=== PATIENT | male | born 1950 | race Caucasian/White ===

== ENCOUNTER 2016-07-26 18:05 | Inpatient (IN) | payer OTHER, BC ==
[~2016-07-26] VITALS: Ht 177.8 cm; Wt 85.3 kg
--- NOTE | ~2016-07-26 | O ---
[facility] [place] [address] OPERATIVE REPORT Name: HANK GUAN Room #: 404-P ADM IN M.R.#: [id number] Admission: 07/26/16 Attend Phys: Jayro Sharp MD Discharge: Date of : 52 Report #: [id number] THIS REPORT FOR: //name// CC: Dr. Vibha Schwab MD DATE OF SERVICE: 07/27/2016 PREOPERATIVE DIAGNOSIS: Osteomyelitis, left fifth metatarsal with septic joint, left foot. POSTOPERATIVE DIAGNOSIS: Osteomyelitis, left fifth metatarsal with septic joint, left foot. SURGEON: Dewayne Warren DPM. PLATER PRODUCTION: None. ANESTHESIA: LMA and general PROCEDURE IN DETAIL: Under mild sedation, the patient was brought into the operating room, placed on the operating table and placed in supine position. Following sedation, the foot was scrubbed, prepped and draped in the usual sterile manner with a chronic wound on the lateral aspect of the left foot, which was confirmed to be osteomyelitis on a CT scan. Also, has elevated sed rate and a white blood cell count is mildly elevated. I made a fishmouth shaped incision at the base of the fifth toe extending to the lateral aspect of the toe where the wound was present encompassing the wound and the incision was deepened through the subcutaneous tissue utilizing sharp and blunt dissection technique. Bleeders were ligated and cauterized as necessary. I did notice a fair to good amount of bleeding noted, which I was pleased with upon the incision. The incision was deepened to the subcutaneous tissue utilizing sharp and blunt dissection techniques. Care was taken to identify neural and vascular structures. I then disarticulated the fifth toe at the level of the fifth metatarsophalangeal joint. Purulence was obvious in the joint and the fifth toe base was certainly involved along with the fifth metatarsal head, which was soft laterally and friable. I used a sagittal saw to resect the fifth metatarsal head and neck and shaft both laterally and plantarly to avoid any sharp prominences. The bones were removed and passed the operative field and will be sent to pathology for gross micro evaluation. Wound cultures were taken from inside the joint where the purulence was obvious. I irrigated with copious amounts of normal sterile saline mixed bacitracin and looked for any necrotic [address] [address] OPERATIVE REPORT Name: HANK GUAN Room #: 404-P ADM IN M.R.#: [id number] Admission: 07/26/16 Attend Phys: Jayro Sharp MD Discharge: Date of : 52 Report #: [id number] tissue and it should be noted that none was found. I irrigated again with normal sterile saline. I reapproximated the wound margins utilizing 2-0 Prolene to facilitate healing. I did feel like I resected back to healthy bleeding bone with left remaining appeared healthy and viable without evidence of osteomyelitis. I then washed the distal portion of the wound open and packed this lightly with NuGauze, light sterile dressings were applied. No tourniquet was used as the patient has had a bypass on the legs. He has been given Zosyn and vancomycin. He tolerated the procedure and anesthesia well without complications. He was transferred to recovery with vital signs stable and vascular status intact to the left side. Following a period of postoperative monitoring, the patient will be transferred back to the fourth floor under the care of Dr. Harrison and consultants. By: [id number] Dewayne Warren DPM /carina
--- NOTE | ~2016-07-26 | EKG ---
[address] [place] [address] ELECTROCARDIOGRAM REPORT Name: FREIDAHANK Room #: 404-P ADM IN M.R.#: [id number] Admission: 07/26/16 Attend Phys: Lore Rubin Discharge: Date of : 52 Report #: [id number] THIS REPORT FOR: //name// [facility] Test Date: 2016-07-27 Test Time: 15:42:45 Pat Name: HANK GUAN Department: Room: 404 P Gender: M Video Editor: LARA : 1950 Requested By: Sampson Warren Order Number: [id number] MD: Measurements Intervals [place] Rate: 71 P: 43 OR: 161 QRS: 5 QRSD: 99 T: 150 QT: 378 QTc: 411 Interpretive Statements Sinus rhythm Abnormal R-wave progression, early transition LVH with secondary repolarization abnormality Inferior infarct, old Baseline wander in lead(s) V2,V3 Compared to ECG 03/15/2006 07:31:38 Left ventricular hypertrophy now present Early repolarization now present Myocardial infarct finding still present [email or web address] By: 1542 1542 Epiphany Epiphany, /EPI
--- NOTE | ~2016-07-26 | HC ---
[facility] [place] [address] CONSULTATION Name: HANK GUAN Room #: 404-P [place] IN M.R.#: [id number] Admission: 07/26/16 Attend Phys: Jayro Sharp MD Discharge: Date of : 52 Report #: [id number] THIS REPORT FOR: //name// CC: ANISHA Sharp DATE OF SERVICE: 07/27/2016 HISTORY OF PRESENT ILLNESS: A 66-year-old man admitted with left diabetic foot infection and started on vancomycin and Zosyn. In view of renal dysfunction, vancomycin and decrease dose of Zosyn. The patient now on linezolid and Zosyn. Cultures are still pending. Apparently, the patient had foot infection for several weeks to month and a CT scan and x-rays reveal chronic osteomyelitis, left fifth toe, possibly left fourth metatarsal. PAST MEDICAL HISTORY: Diabetes mellitus. Peripheral vascular disease. Status post revascularization of lower extremity. History of stent infection requiring removal. The patient had been on treatment at home with a combination of oral antibiotics. The patient has a history of neuropathy. Previous episode of Guillain-Marion. Coronary artery bypass grafting x 6. DRUG ALLERGIES: INFLUENZA VACCINE. MEDICATIONS: The patient is on treatment with aspirin, metoprolol, sertraline, clopidogrel bisulfate, atorvastatin, lisinopril, glimepiride, Zosyn 3.375 grams IV every 8 hours, linezolid 600 mg IV twice daily, subcutaneous heparin, lactobacillus acidophilus, insulin Lispro per sliding scale, p.r.n. glucose, glucagon. SOCIAL HISTORY: See H and P. FAMILY HISTORY: See H and P. REVIEW OF SYSTEMS: As above and see H and P. PHYSICAL EXAMINATION: GENERAL: Well-developed, chronically ill-appearing man, afebrile. VITAL SIGNS: Temperature 98.5, pulse 77, respirations 18, BP 134/55. HEENMT: Within range, NECK: Supple. No thyromegaly. LUNGS: Clear. HEART: S1, S2. No gallop or murmur. ABDOMEN: Benign. EXTREMITIES: Atrophy, interosseous muscles, hands and lesions of onychomycosis in fingernails on treatment with Lamisil per Dr. Wilkins. The patient has an ulceration and pus draining. Ulceration around the left fifth [facility] [place] [place] [address] [place] [address] CONSULTATION Name: HANK GUAN Room #: 404-P [place] IN M.R.#: [id number] Admission: 07/26/16 Attend Phys: Jayro Sharp MD Discharge: Date of : 52 Report #: [id number] metatarsophalangeal joint area. I detect no peripheral pulses by palpation. NEUROLOGIC: Grossly within normal limits. LABORATORY DATA: Sodium 138, potassium 4, BUN 33, creatinine 1.7, glucose 120. WBC 11.5, hemoglobin 12.2, platelets 191,000. Sed rate 83. CRP 126.6. C. difficile toxin assay negative. RADIOLOGY EVALUATION: CT scan of the foot revealed findings compatible with osteomyelitis, septic arthritis left fifth metatarsophalangeal joint and possible osteomyelitis, left fourth metatarsal. Discussed with Dr. Warren who by surgical servation of the metatarsal detected no evidence of osteomyelitis when she proceeded to resect fifth metatarsal and toes. MICROBIOLOGY DATA: Culture of the drainage from the foot revealed MRSA, Enterococcus species and gram-negative organism. ASSESSMENT: 1. Chronic osteomyelitis, left fifth metatarsophalangeal joint area with septic arthritis. 2. Peripheral vascular disease. 3. Chronic kidney disease secondary to diabetes. 4. Coronary artery bypass grafting. 5. Onychomycosis, fingernails. SUGGESTIONS: Recommend Zyvox 600 mg IV 2 times daily, decrease Zosyn 3.375 grams IV every 8 hours. We will try to determine antibiotics he will be needing at home once culture results available to us. I canceled the vancomycin level today since the patient no longer on vancomycin. Dr. Kimble, thank you for requesting my suggestions. <ELECTRONICALLY SIGNED> By: Epi Dunne MD 07/29/16 0845 1147 1820 Epi Dunne MD /nt
--- NOTE | ~2016-07-26 | HC ---
[facility] [place] [address] CONSULTATION Name: FREIDAHANK CHARY Room #: 404-P [facility] IN M.R.#: [id number] Admission: 07/26/16 Attend Phys: Jayro Sharp MD Discharge: 07/30/16 Date of : 52 Report #: [id number] THIS REPORT FOR: //name// CC: ANISAH DIMPLE Jayro Sharp DATE OF SERVICE: 07/30/2016 SUBJECTIVE: The patient is 2 days status post fifth ray resection, left foot. He states he is feeling better and less diarrhea. Negative for seizures. He has got a good appetite today. Overall doing well. Denies nausea, vomiting, fevers or chills. PHYSICAL EXAMINATION: VITAL SIGNS: Stable. He is currently afebrile. LOWER EXTREMITIES: Left foot, he has bleeding through the bandages. He has had these reinforced several times. Bandages were removed. Small amount of bleeding noted from the middle portion of the incision. Incision is well coapted, except for the distal portion which has some light packing. I carefully removed the packing today. No bleeding was noted from this area. Good pink perfused tissue was noted. No erythema or edema around the incision. Overall looks very good. LABORATORY DATA: Recent labs, sed rates down to the 20s from 90 yesterday. ASSESSMENT AND PLAN: Osteomyelitis and joint infection status post fifth ray resection, postoperative day #3. Healing as anticipated. Sed rate down significantly indicating resolution of the infection. Continue with daily dressing changes. Plans noted for transfer to rehab facility today, which I agree with. I will follow up with him next week on Tuesday. Appointments have already been made. Antibiotics per infectious disease. He is on linezolid and Zosyn based on cultures, which were positive for MRSA and Enterococcus. Minimal activity. The patient is to use surgical shoe at all times when ambulating. Minimal activities on the left foot. By: 1503 1527 Dewayne Warren DPM /nt
--- NOTE | ~2016-07-26 | HC ---
[facility] [place] [address] CONSULTATION Name: HANK GUAN Room #: 404-P [facility] IN M.R.#: [id number] Admission: 07/26/16 Attend Phys: Jayro Sharp MD Discharge: 07/30/16 Date of : 52 Report #: [id number] THIS REPORT FOR: //name// CC: ANISHA DIMPLE Sharp DATE OF SERVICE: 07/28/2016 HISTORY OF PRESENT ILLNESS: The patient is a 66-year-old white male with history of diabetes mellitus, peripheral neuropathy, peripheral vascular disease, admitted with worsening left lateral forefoot wounds as well as nausea and vomiting and decreased appetite. He was evaluated and has now undergone a fifth toe amputation on 07/27/2016 by podiatry. Wound culture positive for MRSA. Stool sample has been sent for C. diff. As far as his left foot wound, he was noted to have osteomyelitis and he has been continued on IV antibiotics as per Infectious Disease. As far as his nausea and vomiting, he is feeling better this afternoon per my discussion with him. PAST MEDICAL HISTORY: Includes the prior left foot wound, his history of diabetes mellitus, history of coronary artery bypass grafting with stents, acute renal insufficiency noted on chronic kidney disease. He has had prior left lower extremity stents and bypass. MEDICATIONS: Please see the full medication listing. SOCIAL HISTORY: Lives in a house with his . There are no steps. She is retired. He notes he was getting around using his knee, walker as well as his crutches and he has a 4-wheeled walker as well. The patient has been nonweightbearing while at home typically utilizing the knee walker or the crutches. REVIEW OF SYSTEMS: Did not offer any current complaints of chest pain, shortness of breath or abdominal discomfort. PHYSICAL EXAMINATION: GENERAL: The patient is a pleasant 66-year-old white male in no obvious distress. VITAL SIGNS: Last recorded temperature 97, pulse 99, respirations 18, blood pressure 139/67. NEUROLOGIC: He is alert, pleasant, oriented, appears to be a good historian. Faces are symmetric. Functional range of motion of both upper extremities without obvious focal weakness. EXTREMITIES: He does have some mild weakness of his intrinsics of both hands. Lower extremities, right lower extremity reveals functional range of motion with good strength proximal and distal. He does have some decreased sensation, large toe proprioception with his peripheral neuropathy. Left lower extremity reveals [address] [address] CONSULTATION Name: HANK GUAN Room #: 404-P [facility] IN .R.#: [id number] Admission: 07/26/16 Attend Phys: Jayro Sharp MD Discharge: 07/30/16 Date of : 52 Report #: [id number] the left fifth toe amputation which is dressed. He otherwise has good strength proximally of the left lower extremity. ASSESSMENT: A 66-year-old white male with the following problem list: 1. Left foot wounds with osteomyelitis, status post fifth toe amputation, 07/27/2016. 2. Diabetes mellitus, type 2. 3. Acute renal insufficiency, superimposed on chronic kidney disease. 4. Premorbid peripheral neuropathy with his diabetes. 5. History of coronary artery disease with coronary artery bypass grafting and stenting. PLAN: The patient premorbidly was nonweightbearing on that left lower extremity and will be continuing with that. He will be getting up with physical therapy and we will see how he does with his basic transfers and utilizing the crutches. He notes his niece's scooter is at home. Would anticipate his functional level to be fairly similar to his premorbid status and would think that he should be able to return back to the home setting with home health care. We will nevertheless continue to follow along with his therapies to see how he does. Thank you for asking us to assist in this patient's care. Sincerely, <ELECTRONICALLY SIGNED> By: Hoang Zhu MD 08/03/16 1157 1447 Hoang Zhu MD /nt
--- NOTE | ~2016-07-26 | S ---
[facility] [place] [address] SURGICAL PATH RPT PROCEDURE Name: HANK HUI Room #: 404-P ADM IN M.R.#: [id number] Admission: 07/26/16 Date of : 52 Discharge: Report #: [id number] Path Case #: [id number] PATHOLOGY REPORT COLLECTION DATE: 07/27/2016 RECEIVED DATE: 07/28/2016 SUBMITTING PHYS: Dr. Dewayne Warren OTHER PHYS: Dr. Muna Rubin SPECIMEN(S) RECEIVED: A.5th toe and metatarsal left foot * * * * * * * * * * * * FINAL DIAGNOSIS: Fifth toe and metatarsal left foot, amputation: - Marked acute inflammation involving subcutaneous tissue extending into underlying bone, consistent with the provided history of osteomyelitis. - Inked margins showing viable and unremarkable bone. PATHOLOGIST: Claudia Lopez M.D. REPORT ELECTRONICALLY SIGNED BY: Claudia Lopez M.D. DATE/TIME: 07/29/2016 15:00 * * * * * * * * * * * * GROSS PATHOLOGY: The specimen is received in formalin labeled "Hank Hui fifth toe and metatarsal left foot". Received is an amputated digit measuring 6.4 x 3.1 x 2.0 cm in greatest dimensions. The bone margin is smooth and concave in appearance, consistent with disarticulation. The bony and soft tissue margins are inked black. The nail is present displaying a light preston and thickened appearance. Along the skin margin, there is a poorly circumscribed, irregular in contour, necrotic-appearing light preston lesion measuring 2.8 x 2.7 cm. A full-length longitudinal cross section is submitted in cassettes A1 and A2, divided into proximal and distal aspects, following decalcification. Also received within the specimen container is an additional segment of bone displaying one blunt margin and one smooth margin, measuring 2.9 x 1.7 x 1.1 cm in greatest dimensions. The blunt margin is inked black. A strategic partnership representative full-length cross-sections submitted in cassette A3, following decalcification. (CAA; 07/28/2016) [facility] [place] [address] SURGICAL PATH RPT PROCEDURE Name: HANK HUI Room #: 404-P ADM IN M.R.#: [id number] Admission: 07/26/16 Date of : 52 Discharge: Report #: [id number] Path Case #: [id number] CLINICAL HISTORY: Osteomyelitis INITIAL CPT CODE(S): A; 79469, 79499 Professional services performed by [facility] at [facility] [address] [place] [address] Technical services performed by [facility] at [address] [place] [address], [facility] [address] [address]. [facility] [address] [place] [address] PHONE: [phone] DIRECTOR: Terrell Flores M.D. * * * END OF REPORT * * *
--- NOTE | ~2016-07-26 | EKG ---
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
--- NOTE | ~2016-07-26 | HC ---
[facility] [place] [address] CONSULTATION Name: HANK GUAN Room #: 404-P ADM IN M.R.#: [id number] Admission: 07/26/16 Attend Phys: Jayro Sharp MD Discharge: Date of : 52 Report #: [id number] THIS REPORT FOR: //name// CC: Dr. Hunter Garcia MD DATE OF SERVICE: 07/27/2016 PRIMARY PHYSICIAN: Dr. Hrarison CONSULTING PHYSICIAN: Dewayne Warren DPM HISTORY OF PRESENT ILLNESS/CHIEF COMPLAINT: This is a 66-year-old male who is well known to me, who has had ulcerations on the left foot times 2 for many months now. The patient states, he has had a chronic wound underneath the ball of the foot, off and on for quite some time. This wound has recently healed, however. He subsequently developed wound approximately 2 months ago on the lateral aspect of left foot, which has continued to worsen and decline. We recently obtained CAT scan of the left foot, which revealed osteomyelitis of the fifth metatarsal head and toe. He did not have an MRI due to hardware in this location. He has an elevated sed rate as well. He developed nausea and vomiting yesterday at approximately 11:00 a.m. and then went to the emergency room last night and was subsequently admitted. The patient has a complex medical history with severe foot infection in the left where he was advised to have dzzzp-lgd-yqhw amputation. Then he had revascularizations and multiple foot surgeries including skin grafts and eventually the foot did heal. This was sometime ago. 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 He denies pain, but has neuropathy. He has undergone a bypass on the left leg by Dr. Garcia with some minor blockage. He saw him recently and was advised no more revascularization could be done at this time. ALLERGIES: No known drug allergies. CURRENT MEDICATIONS: Januvia, Lasix, lisinopril, glimepiride, clopidogrel, metoprolol, Lipitor, midodrine, sertraline, aspirin currently being held, doxycycline, Cipro. Prior to admission, he was started on Zosyn and vancomycin since the hospitalization last night. PAST MEDICAL HISTORY: 1. Significant for peripheral vascular disease, status post bypass and stenting on the left leg. There was zjg-xp-vjrfiadbi [place] [address] [address] CONSULTATION Name: HANK GUAN Room #: 404-P [facility] IN [facility].#: [id number] Admission: 07/26/16 Attend Phys: Jayro Sharp MD Discharge: Date of : 52 Report #: [id number] 2. Diabetes mellitus type 2, under fair control. 3. Chronic kidney disease. 4. Hypertension. 5. Hyperlipidemia. 6. Guillain-Edson. 7. Coronary artery disease, multiple vessels, status post CABG times 6. PAST SURGICAL HISTORY: Significant for femoral to posterior tibial bypass in 2015 on the left leg. Recently had a graft scan, which revealed some stenosis that was minor approximately 30-50% and multiple stents and angioplasties in lower extremities. CABG times 6. FAMILY HISTORY: Father with myocardial infarction. Mother with a history of malignant neoplasm. PERSONAL/SOCIAL HISTORY: The patient drinks coffee. Denies alcohol abuse. Quit smoking approximately 9 months ago. He is . 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 REVIEW OF SYSTEMS: As above in chief complaint and history of present illness. The patient has mild nausea and vomiting. He denies fevers or chills, although he does have low-grade fever on admission. VITAL SIGNS: As follows. Temperature 98.7, pulse of 77, respiratory rate 18 and blood pressure 110/45. LABORATORIES: As follows. Labs on the chart were reviewed. Significant for white blood cell count elevated at 11.5. Segs 79%. Sed rate 83. Creatinine 1.7. Recently, has MRSA on wound cultures in my office. He recently had more wound cultures taken. PHYSICAL EXAMINATION: GENERAL: Well-developed and well-nourished male, in no apparent distress. PSYCHIATRIC: The patient has normal mood and affect. LOWER EXTREMITY EXAM: 0/4 posterior tibial and dorsalis pedis pulses bilaterally. Capillary refill time is approximately 4 seconds. Pedal hair growth was diminished at both feet. Again recent vascular surgery revealed minor blockage of the bypass on the left, but no further revascularization was recommended at that time or planned. DERMATOLOGY: Full-thickness ulceration on the lateral aspect of the left foot, measuring 2.8 cm x 2.7 cm with heavy fibrotic tissue centrally in the bone was palpable centrally. There is mild erythema surrounding. Rtvlanbw-vz-jhphp serosanguineous drainage. Left leg with a well-healed scar from a ytvcbwv-qr-zrkdphfyh tibial bypass. NEUROLOGICAL: Diminished sensation to both feet per [place] monofilament. Diminished vibratory sensation, both feet. [facility] [address] [place] [address] CONSULTATION Name: HANK GUAN Room #: 404-P ADM IN M.R.#: [id number] Admission: 07/26/16 Attend Phys: Jayro Sharp MD Discharge: Date of : 52 Report #: [id number] MUSCULOSKELETAL: No significant deformity is noted on either foot, except for drop foot on the left foot. He has diminished muscle strength on the left foot. ASSESSMENT AND PLAN: Diabetes mellitus type 2 with chronic foot ulceration and osteomyelitis diagnosed recently. I reviewed the CAT scan taken revealing osteomyelitis. Also has an elevated sed rate and elevated white blood cell count. This was complicated by severe peripheral vascular disease, status post lower extremity bypass previously, multiple stents and angioplasties by Dr. Garcia. I spoke with vascular today and they agree with the plan to remove the infected bone and to continue to monitor closely. If wound is not improving or deteriorates, we will refer back to vascular. I discussed with the and the patient today extensively about the plan and the risks involved. He understands he is at risk for anfer-vrm-ohnj amputation. Complications with anesthesia and vascular is not available at this hospital, which they also understand. I did offer for him to be discharged and go to [facility] where vascular surgeon is available. The patient and his decline currently. Plan is to do a left fifth ray resection today under local monitored anesthesia care anesthesia for possible placement of antibiotic beads, left foot. I discussed the possible complications of the procedure, which include but are not limited to continued infection, blood clot, need for additional surgery, nerve damage, chronic pain, complications with anesthesia, loss of limb and/or life. No guarantees were given or implied. All questions were answered. Positive for methicillin-resistant Staphylococcus aureus on previous cultures. Recent cultures were also taken in the hospital. He is on vancomycin, which has recently been held due to creatinine increasing and he is also on Zosyn. Infections disease is following. Diabetes mellitus type 2 with coronary artery disease, chronic kidney disease, peripheral vascular disease, hyperlipidemia, hypertension and multiple foot infections on the left. Thank you for consultation. We will continue to follow. He is n.p.o. for now. We will hold blood thinners. By: [id number] [id number] Dewayne Warren DPM /nt
--- NOTE | ~2016-07-26 | HC ---
[facility] [place] [address] CONSULTATION Name: FREIDAHANK Room #: 404-P [facility] IN M.R.#: [id number] Admission: 07/26/16 Attend Phys: Jayro Sharp MD Discharge: 07/30/16 Date of : 52 Report #: [id number] THIS REPORT FOR: //name// CC: ANISHA Rubin DATE OF SERVICE: 07/27/2016 ATTENDING PHYSICIAN: Dr. Harrison. REASON FOR CONSULTATION: Chronic kidney disease. HISTORY OF PRESENT ILLNESS: The patient followed in our office by Dr. Renee with CKD, known diabetic nephropathy, on appropriate treatment, has had a progressive and worsening left foot ulcer and has developed osteomyelitis, now admitted to the hospital for further therapy and treatment. Has had some fevers and chills and some degree of debility and drainage from the foot with some pain. PAST MEDICAL HISTORY: Longstanding diabetes mellitus. He has peripheral neuropathy, but denies retinopathy. He has diabetic nephropathy, followed by Dr. Renee in the office with known proteinuria. He has hypertension, previous heart bypass surgery. He has had chronic foot ulcer on the left foot and peripheral arterial disease status post bypass surgery on the left leg. HOME MEDICATIONS: Include lisinopril 10 mg daily, doxycycline 100 mg b.i.d., Cipro, atorvastatin 80 mg daily, metformin 500 mg b.i.d., Januvia 100 mg daily, terbinafine 250 mg daily, midodrine 2.5 mg b.i.d., glimepiride 4 mg b.i.d., Plavix 75 mg daily, Sertraline 100 mg daily, furosemide 20 mg daily, metoprolol 25 mg daily, aspirin 81 mg daily. PAST MEDICAL HISTORY: Also includes a history of Guillain-[place], treated with plasmapheresis and hypertension. SOCIAL HISTORY: He was a smoker, but he quit. 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 FAMILY HISTORY: Positive for heart disease, cancer and diabetes. REVIEW OF SYSTEMS: GENERAL: He has been feeling reasonably well. EYES: His vision is fine. No problems there. ENT: Hears okay, swallows okay. Denies mouth sores or ulcers. ENDOCRINE: Positive for the diabetes. RESPIRATORY: Denies shortness of breath, pleuritic pain, cough or hemoptysis. CARDIAC: No chest pain, angina or arrhythmias. [address] [address] CONSULTATION Name: HANK GUAN Room #: 404-P [facility] IN ..#: [id number] Admission: 07/26/16 Attend Phys: Jayro Sharp MD Discharge: 07/30/16 Date of : 52 Report #: [id number] GASTROINTESTINAL: No nausea, vomiting, diarrhea or history of gastroparesis. GENITOURINARY: Good urinary stream, no hematuria, no renal stone disease. NEUROLOGIC: He has got neuropathy in his legs. SKELETAL: The foot wound. PHYSICAL EXAMINATION: GENERAL: This is a reasonably well appearing lucid gentleman giving a nice history. SKIN: Unremarkable. SKELETAL: He has got dressing over the left foot. HEENT: Extraocular movements are full. Vision is intact. No scleral icterus. Hearing is intact. Mucous membranes moist. Tongue, buccal mucosa grossly benign. NECK: Supple, without lymphadenopathy, carotid bruits, no JVD noted. CHEST: Completely clear to auscultation. HEART: Regular without murmurs, gallops or rubs. ABDOMEN: Soft and nontender, without bruits, masses or organomegaly. EXTREMITIES: He had wounds down the left leg where he had bypass. NEUROLOGIC: Numbness below the shins. LABORATORY DATA: Hemoglobin 12.2, sodium 138, potassium 4, chloride 102, bicarbonate 24, creatinine 1.7, BUN 33, ASSESSMENT AND PLAN: 1. Chronic kidney disease: He apparently has underlying diabetic nephropathy. I will wait until the left foot wound has been dealt with in more detail before measuring his ____. At this point, his renal function is stable. We will follow him carefully through the probable surgery, etc, continuing medications as indicated. 2. History of hypotension. He is on midodrine. I will have to reexplore that as his blood pressures are just fine, so I am a little bit puzzled on that front. 3. History of hypertension, on lisinopril. 4. History of coronary artery disease status post bypass, he is on metoprolol. 5. Peripheral vascular disease status post bypasses. 6. History of Guillain-[place]. <ELECTRONICALLY SIGNED> By: Gab Baldwin MD 08/02/16 1047 [id number] Gab Baldwin MD /nt
--- NOTE | ~2016-07-26 | HC ---
[facility] [place] [address] CONSULTATION Name: FREIDAHANK CHARY Room #: 404-P ADM IN M.R.#: [id number] Admission: 07/26/16 Attend Phys: Jayro Sharp MD Discharge: Date of : 52 Report #: [id number] THIS REPORT FOR: //name// CC: ANISHA Sharp DATE OF SERVICE: 07/29/2016 HISTORY OF PRESENT ILLNESS: A 66-year-old male who is 2 days status post left fifth ray resection for osteomyelitis with septic joint. He states he has had some diarrhea off and on for several days. He states it is mild and a bit loose to watery without foul odor. He denies nausea, vomiting or fevers, chills. He does have much of an appetite. Denies pain in the left foot. VITAL SIGNS: Temperature is 99.9, which is also T-max; pulse 69, respirations are 18, blood pressure is 143/55. LABORATORY DATA: White blood cell count 7.2, segs are 77%, hemoglobin is 10.8. Sed rate is 90. LOWER EXTREMITY PHYSICAL EXAMINATION: Dressings were just recently removed and nursing stated that there was some bleeding, so they applied heavy bandages and that just recently stopped the bleeding. They thought it was due to the patient walking on the foot too much. They state that the packing is still in place. Pathology report was not available yet. ASSESSMENT AND PLAN: 1. Osteomyelitis and septic joint, left foot, status post fifth ray resection on Zyvox and Zosyn per Infectious Disease recommendations. Continue with daily dressing changes. Minimal activities on his foot. Due to bleeding concerns today, recommended no more weightbearing today. We will change dressings tomorrow and evaluate. 2. Diarrhea. Stools were checked for Clostridium difficile. 3. Diabetes mellitus type 2 with peripheral vascular disease, neuropathy, coronary artery disease, chronic kidney disease. 4. We will continue to follow. Anticipate transfer to rehab facility in the next few days if okay with Medicine and consultants. expresses concern to me at bedside today about caring for him at home. She does not feel like she is able to care for him. The patient is agreeable to this and I did discuss this with him today. By: 1612 [id number] Dewayne Warren DPM /carina
--- NOTE | ~2016-07-26 | H ---
[facility] [place] [address] HISTORY AND PHYSICAL Name: HANK GUAN Room #: 404-P ADM IN M.R.#: [id number] Admission: 07/26/16 Attend Phys: Jayro Sharp MD Discharge: Date of : 52 Report #: [id number] THIS REPORT FOR: //name// CC: ANISHA Sharp DATE OF SERVICE: 07/28/2016 HISTORY OF PRESENT ILLNESS: A 66-year-old male, who is status post left fifth metatarsal resection, post operative day #1. The patient states he feels well, denies nausea, vomiting, fevers, or chills. Does not have much of an appetite, but otherwise feeling well. Vital signs are stable. The patient is currently afebrile. Labs reveal white blood cell count of 7.6, segs 79%, hemoglobin 11.5. Wound cultures reveal enterococcus and MRSA. Lower extremity exam reveals incisions are well coapted with sutures. There is no erythema, mild edema as expected. No purulent drainage. No fluctuance or evidence of abscess. Packing is present distally in wounds, where it is left open approximately 2 cm at the distal end of the wounds ASSESSMENT/PLAN: 1. Osteomyelitis of left foot with severe peripheral vascular disease with previous bypass and stenting on the left leg. 2. Status post fifth ray resection, left foot, post operative day #1. White blood cell counts improved, afebrile. Treated with local wound care and antibiotics, per infectious disease. He is on Zosyn and Zyvox, which provide good coverage. His creatinine is down to 1.2. 3. Diabetes mellitus type 2 with neuropathy, nephropathy, peripheral vascular disease, and coronary artery disease. We will continue to follow. By: 1606 1756 Dewayne Warren DPM /nt
[2016-07-26 18:18] VITALS: BP 118/69
[2016-07-26 20:34] LABS: HEMATOCRIT 36.5 % (42.0-52.0); HEMOGLOBIN 12.2 gm/dL (14.0-18.0); MCH 28.3 pg (26.0-34.0); MCHC 33.5 g/dL (28.0-37.0); MCV 84.6 fL (80.0-100.0); PLATELET COUNT 191 thou/uL (150-400); RBC 4.32 mil/uL (4.50-6.00); RDW 13.2 % (10.5-14.5); WBC 11.5 thou/uL (4.0-11.0)
[2016-07-26 20:37] LABS: MANUAL DIFF YES
[2016-07-26 20:38] LABS: CALCIUM 8.4 mg/dL (8.5-10.1); CREATININE 1.7 mg/dL (0.7-1.3)
[2016-07-26 20:56] LABS: ABSOLUTE NEUTROPHILS 9.1 thou/uL (1.4-8.2); ANISOCYTOSIS 1+; TOTAL CELL COUNT 100
[2016-07-26 22:53] VITALS: BP 134/69
[2016-07-26 23:15] VITALS: BP 134/55
[2016-07-27] VITALS (7 sets, daily range): BP systolic 110–138; BP diastolic 45–70
[2016-07-27] MEDS ORDERED: LISINOPRIL40 MG PO (01:04)
[2016-07-27] MEDS ORDERED: DOXYCYCLINE HY100 M3 PO (01:05)
[2016-07-27] MEDS ORDERED: ATORVASTATIN CA80 MG PO (01:06)
[2016-07-27] MEDS ORDERED: CIPRO500 MG PO (01:06)
[2016-07-27] MEDS ORDERED: GLUCOPHAGE XR500 MG PO (01:07)
[2016-07-27] MEDS ORDERED: TERBINAFINE HC250 MG PO (01:08)
[2016-07-27] MEDS ORDERED: JANUVIA100 MG PO (01:08)
[2016-07-27] MEDS ORDERED: MIDODRINE HCL2.5 M1 PO (01:09)
[2016-07-27] MEDS ORDERED: AMARYL4 MG PO (01:09)
[2016-07-27] MEDS ORDERED: PLAVIX 75 MG TA75 M1 PO (01:10)
[2016-07-27] MEDS ORDERED: SERTRALINE HCL100 MG PO (01:11)
[2016-07-27] MEDS ORDERED: LASIX 20 MG TAB20 MG PO (01:12)
[2016-07-27] MEDS ORDERED: METOPROLOL SUCC50 MG PO (01:13)
[2016-07-27] MEDS ORDERED: BAYER CHEWABLE81 MG PO (01:16)
[2016-07-27] MEDS ORDERED: PROBIOTIC1 EAC1 PO (01:17)
[2016-07-28 04:33] VITALS: BP 152/76
[2016-07-28 05:22] LABS: HEMATOCRIT 33.7 % (42.0-52.0); HEMOGLOBIN 11.5 gm/dL (14.0-18.0); MCH 28.7 pg (26.0-34.0); MCV 84.5 fL (80.0-100.0); PLATELET COUNT 168 thou/uL (150-400); RBC 3.99 mil/uL (4.50-6.00); RDW 13.4 % (10.5-14.5); WBC 7.6 thou/uL (4.0-11.0)
[2016-07-28 05:29] LABS: MANUAL DIFF YES
[2016-07-28 05:39] LABS: CALCIUM 7.9 mg/dL (8.5-10.1); CREATININE 1.2 mg/dL (0.7-1.3); POTASSIUM 4.2 mmol/L (3.5-5.1)
[2016-07-28 06:41] LABS: ABSOLUTE NEUTROPHILS 5.9 thou/uL (1.4-8.2); ANISOCYTOSIS SLIGHT; TOTAL CELL COUNT 100
[2016-07-28 08:00] VITALS: BP 139/67
[2016-07-28 16:00] VITALS: BP 150/63; BP 1502/63
[2016-07-28 20:00] VITALS: BP 159/76
[2016-07-29 03:56] LABS: HEMATOCRIT 31.5 % (42.0-52.0); HEMOGLOBIN 10.8 gm/dL (14.0-18.0); MCH 28.8 pg (26.0-34.0); MCHC 34.3 g/dL (28.0-37.0); MCV 83.9 fL (80.0-100.0); RBC 3.76 mil/uL (4.50-6.00); RDW 13.4 % (10.5-14.5); WBC 7.7 thou/uL (4.0-11.0)
[2016-07-29 04:00] VITALS: BP 155/65
[2016-07-29 04:07] LABS: CALCIUM 8.6 mg/dL (8.5-10.1); CREATININE 1.1 mg/dL (0.7-1.3); POTASSIUM 4.2 mmol/L (3.5-5.1)
[2016-07-29 08:00] VITALS: BP 143/55
[2016-07-29 16:00] VITALS: BP 143/65
[2016-07-29 20:00] VITALS: BP 142/64
[2016-07-30 04:00] VITALS: BP 140/66
[2016-07-30 08:17] VITALS: BP 142/78
[2016-07-30] MEDS ORDERED: ZOSYN 3.3753.375 GM IV (13:15)
[2016-07-30] MEDS ORDERED: ZYVOX600 MG/300 IVPB (13:16)
[2016-07-30 17:02] VITALS: BP 143/76
== END 2016-07-30 18:23 | DRG 617 ==
LOC: ER 18:05 → EROBS 22:10 → 4N 22:10
PROVIDERS: Emergency Medicine; Family Medicine; Podiatrist Foot & Ankle Surgery
PROC: 0Y6Y0Z0 Detachment at Left 5th Toe, Complete, Open Approach (ICD-10-PCS; principal; 2016-07-27)
DX: E11.69 Type 2 diabetes mellitus with other specified complication (principal); M86.9 Osteomyelitis, unspecified; M00.9 Pyogenic arthritis, unspecified; N17.9 Acute kidney failure, unspecified; E11.51 Type 2 diabetes mellitus with diabetic peripheral angiopathy without gangrene; I12.9 Hypertensive chronic kidney disease with stage 1 through stage 4 chronic kidney disease, or unspecified chronic kidney disease; E11.22 Type 2 diabetes mellitus with diabetic chronic kidney disease; I95.9 Hypotension, unspecified; I25.10 Atherosclerotic heart disease of native coronary artery without angina pectoris; E11.621 Type 2 diabetes mellitus with foot ulcer; L97.509 Non-pressure chronic ulcer of other part of unspecified foot with unspecified severity; E78.5 Hyperlipidemia, unspecified; B35.1 Tinea unguium; N18.3 Chronic kidney disease, stage 3 (moderate); E11.42 Type 2 diabetes mellitus with diabetic polyneuropathy; Z87.891 Personal history of nicotine dependence; Z82.49 Family history of ischemic heart disease and other diseases of the circulatory system; Z80.9 Family history of malignant neoplasm, unspecified; Z95.1 Presence of aortocoronary bypass graft; Z95.5 Presence of coronary angioplasty implant and graft; Z83.3 Family history of diabetes mellitus
CPT/HCPCS: 10091; 50010; 50101; 50386; 50951; 53010; 56525; 56871; 57091; 62110; 62900; 70005

== ENCOUNTER → 2016-11-18 | Outpatient (CLI) | payer OTHER, BC ==
[~2016-11-18] MED LIST: AMARYL4 MG PO; ATORVASTATIN CA80 MG PO; BAYER CHEWABLE81 MG PO; CIPRO500 MG PO; DOXYCYCLINE HY100 M3 PO; GLUCOPHAGE XR500 MG PO; JANUVIA100 MG PO; LASIX 20 MG TAB20 MG PO; LISINOPRIL40 MG PO; METOPROLOL SUCC50 MG PO; MIDODRINE HCL2.5 M1 PO; PLAVIX 75 MG TA75 M1 PO; PROBIOTIC1 EAC1 PO; SERTRALINE HCL100 MG PO; TERBINAFINE HC250 MG PO; ZOSYN 3.3753.375 GM IV; ZYVOX600 MG/300 IVPB
== END ==
LOC: HYPER 06:54
DX: T81.89XA Other complications of procedures, not elsewhere classified, initial encounter (principal); L84 Corns and callosities; E11.621 Type 2 diabetes mellitus with foot ulcer; L97.521 Non-pressure chronic ulcer of other part of left foot limited to breakdown of skin; L89.623 Pressure ulcer of left heel, stage 3; L97.421 Non-pressure chronic ulcer of left heel and midfoot limited to breakdown of skin; E11.69 Type 2 diabetes mellitus with other specified complication; M86.8X7 Other osteomyelitis, ankle and foot; E11.51 Type 2 diabetes mellitus with diabetic peripheral angiopathy without gangrene; E11.22 Type 2 diabetes mellitus with diabetic chronic kidney disease; N18.3 Chronic kidney disease, stage 3 (moderate); E11.42 Type 2 diabetes mellitus with diabetic polyneuropathy; I25.10 Atherosclerotic heart disease of native coronary artery without angina pectoris; F17.200 Nicotine dependence, unspecified, uncomplicated; Z72.89 Other problems related to lifestyle; Z86.718 Personal history of other venous thrombosis and embolism; Y83.8 Other surgical procedures as the cause of abnormal reaction of the patient, or of later complication, without mention of misadventure at the time of the procedure

== ENCOUNTER → 2016-11-23 | Outpatient (CLI) | payer OTHER, BC | LOC: HYPER 07:18 | DX: T81.89XD Other complications of procedures, not elsewhere classified, subsequent encounter (principal); E11.621 Type 2 diabetes mellitus with foot ulcer; L97.521 Non-pressure chronic ulcer of other part of left foot limited to breakdown of skin; L97.421 Non-pressure chronic ulcer of left heel and midfoot limited to breakdown of skin; L84 Corns and callosities; L89.623 Pressure ulcer of left heel, stage 3; E11.69 Type 2 diabetes mellitus with other specified complication; M86.8X7 Other osteomyelitis, ankle and foot; E11.51 Type 2 diabetes mellitus with diabetic peripheral angiopathy without gangrene; E11.22 Type 2 diabetes mellitus with diabetic chronic kidney disease; N18.3 Chronic kidney disease, stage 3 (moderate); G61.0 Guillain-Barre syndrome; E11.42 Type 2 diabetes mellitus with diabetic polyneuropathy; I25.10 Atherosclerotic heart disease of native coronary artery without angina pectoris; Z87.891 Personal history of nicotine dependence; Z86.718 Personal history of other venous thrombosis and embolism; Z72.89 Other problems related to lifestyle; Y83.8 Other surgical procedures as the cause of abnormal reaction of the patient, or of later complication, without mention of misadventure at the time of the procedure ==

== ENCOUNTER → 2016-11-25 | Outpatient (CLI) | payer OTHER, BC | LOC: HYPER 06:53 | DX: T81.89XD Other complications of procedures, not elsewhere classified, subsequent encounter (principal); E11.621 Type 2 diabetes mellitus with foot ulcer; L97.521 Non-pressure chronic ulcer of other part of left foot limited to breakdown of skin; E11.69 Type 2 diabetes mellitus with other specified complication; M86.8X7 Other osteomyelitis, ankle and foot; E11.51 Type 2 diabetes mellitus with diabetic peripheral angiopathy without gangrene; E11.40 Type 2 diabetes mellitus with diabetic neuropathy, unspecified; E11.22 Type 2 diabetes mellitus with diabetic chronic kidney disease; N18.3 Chronic kidney disease, stage 3 (moderate); Z86.718 Personal history of other venous thrombosis and embolism; I25.10 Atherosclerotic heart disease of native coronary artery without angina pectoris; E11.21 Type 2 diabetes mellitus with diabetic nephropathy; F17.200 Nicotine dependence, unspecified, uncomplicated; Z72.89 Other problems related to lifestyle; Y83.8 Other surgical procedures as the cause of abnormal reaction of the patient, or of later complication, without mention of misadventure at the time of the procedure ==

== ENCOUNTER → 2016-12-03 | Outpatient (CLI) | payer OTHER, BC | LOC: HYPER 12-01 14:53 | DX: T81.89XD Other complications of procedures, not elsewhere classified, subsequent encounter (principal); E11.69 Type 2 diabetes mellitus with other specified complication; M86.8X7 Other osteomyelitis, ankle and foot; E11.51 Type 2 diabetes mellitus with diabetic peripheral angiopathy without gangrene; E11.40 Type 2 diabetes mellitus with diabetic neuropathy, unspecified; A04.7 Enterocolitis due to Clostridium difficile; E11.22 Type 2 diabetes mellitus with diabetic chronic kidney disease; N18.3 Chronic kidney disease, stage 3 (moderate); Z86.718 Personal history of other venous thrombosis and embolism; E11.42 Type 2 diabetes mellitus with diabetic polyneuropathy; Z72.89 Other problems related to lifestyle; Y83.8 Other surgical procedures as the cause of abnormal reaction of the patient, or of later complication, without mention of misadventure at the time of the procedure ==

== ENCOUNTER → 2020-09-15 | Outpatient (CLI) | payer OTHER | LOC: HYPER 08:48 | PROVIDERS: ATTEND Emergency Medicine | DX: E11.621 Type 2 diabetes mellitus with foot ulcer (principal); L97.522 Non-pressure chronic ulcer of other part of left foot with fat layer exposed; L84 Corns and callosities; E11.51 Type 2 diabetes mellitus with diabetic peripheral angiopathy without gangrene; E11.22 Type 2 diabetes mellitus with diabetic chronic kidney disease; N18.30 Chronic kidney disease, stage 3 unspecified; E11.69 Type 2 diabetes mellitus with other specified complication; M86.8X7 Other osteomyelitis, ankle and foot; E11.42 Type 2 diabetes mellitus with diabetic polyneuropathy; E11.21 Type 2 diabetes mellitus with diabetic nephropathy; I25.5 Ischemic cardiomyopathy; I50.9 Heart failure, unspecified; B35.1 Tinea unguium; D16.12 Benign neoplasm of short bones of left upper limb; G61.89 Other inflammatory polyneuropathies; G61.0 Guillain-Barre syndrome; I25.10 Atherosclerotic heart disease of native coronary artery without angina pectoris; M79.674 Pain in right toe(s); M77.42 Metatarsalgia, left foot; F17.200 Nicotine dependence, unspecified, uncomplicated; Z89.432 Acquired absence of left foot; Z95.1 Presence of aortocoronary bypass graft; Z95.828 Presence of other vascular implants and grafts; Z86.718 Personal history of other venous thrombosis and embolism ==

== ENCOUNTER → 2020-09-29 | Outpatient (CLI) | payer OTHER | LOC: HYPER 08:16 | PROVIDERS: ATTEND Emergency Medicine | DX: E11.621 Type 2 diabetes mellitus with foot ulcer (principal); L97.522 Non-pressure chronic ulcer of other part of left foot with fat layer exposed; E11.51 Type 2 diabetes mellitus with diabetic peripheral angiopathy without gangrene; E11.42 Type 2 diabetes mellitus with diabetic polyneuropathy; L84 Corns and callosities; I25.5 Ischemic cardiomyopathy; I25.10 Atherosclerotic heart disease of native coronary artery without angina pectoris; B35.1 Tinea unguium; M79.674 Pain in right toe(s); D16.32 Benign neoplasm of short bones of left lower limb; M77.42 Metatarsalgia, left foot; E11.22 Type 2 diabetes mellitus with diabetic chronic kidney disease; I50.9 Heart failure, unspecified; N18.30 Chronic kidney disease, stage 3 unspecified; E11.69 Type 2 diabetes mellitus with other specified complication; M86.9 Osteomyelitis, unspecified; G61.0 Guillain-Barre syndrome; F17.290 Nicotine dependence, other tobacco product, uncomplicated; Z86.718 Personal history of other venous thrombosis and embolism; Z95.1 Presence of aortocoronary bypass graft; Z95.820 Peripheral vascular angioplasty status with implants and grafts; Z79.84 Long term (current) use of oral hypoglycemic drugs; Z79.82 Long term (current) use of aspirin; Z79.899 Other long term (current) drug therapy; Z89.432 Acquired absence of left foot ==

== ENCOUNTER → 2020-10-13 | Outpatient (CLI) | payer OTHER | LOC: HYPER 09:14 | PROVIDERS: ATTEND Emergency Medicine Emergency Medical Services | DX: E11.621 Type 2 diabetes mellitus with foot ulcer (principal); L97.522 Non-pressure chronic ulcer of other part of left foot with fat layer exposed; L84 Corns and callosities; E11.51 Type 2 diabetes mellitus with diabetic peripheral angiopathy without gangrene; E11.42 Type 2 diabetes mellitus with diabetic polyneuropathy; E11.21 Type 2 diabetes mellitus with diabetic nephropathy; E11.69 Type 2 diabetes mellitus with other specified complication; M86.8X7 Other osteomyelitis, ankle and foot; E11.22 Type 2 diabetes mellitus with diabetic chronic kidney disease; N18.30 Chronic kidney disease, stage 3 unspecified; B35.1 Tinea unguium; D16.32 Benign neoplasm of short bones of left lower limb; I25.5 Ischemic cardiomyopathy; I25.10 Atherosclerotic heart disease of native coronary artery without angina pectoris; I50.9 Heart failure, unspecified; G61.0 Guillain-Barre syndrome; G61.89 Other inflammatory polyneuropathies; M79.674 Pain in right toe(s); M77.42 Metatarsalgia, left foot; Z86.718 Personal history of other venous thrombosis and embolism; Z89.432 Acquired absence of left foot ==

== ENCOUNTER → 2020-10-27 | Outpatient (CLI) | payer OTHER | LOC: HYPER 08:59 | PROVIDERS: ATTEND Emergency Medicine | DX: E11.621 Type 2 diabetes mellitus with foot ulcer (principal); L97.522 Non-pressure chronic ulcer of other part of left foot with fat layer exposed; L84 Corns and callosities; E11.51 Type 2 diabetes mellitus with diabetic peripheral angiopathy without gangrene; E11.42 Type 2 diabetes mellitus with diabetic polyneuropathy; E11.21 Type 2 diabetes mellitus with diabetic nephropathy; E11.69 Type 2 diabetes mellitus with other specified complication; M86.8X7 Other osteomyelitis, ankle and foot; E11.22 Type 2 diabetes mellitus with diabetic chronic kidney disease; N18.30 Chronic kidney disease, stage 3 unspecified; B35.1 Tinea unguium; D16.32 Benign neoplasm of short bones of left lower limb; I25.5 Ischemic cardiomyopathy; I25.10 Atherosclerotic heart disease of native coronary artery without angina pectoris; I50.9 Heart failure, unspecified; G61.0 Guillain-Barre syndrome; G61.89 Other inflammatory polyneuropathies; M79.674 Pain in right toe(s); M77.42 Metatarsalgia, left foot; Z86.718 Personal history of other venous thrombosis and embolism; Z89.432 Acquired absence of left foot ==

== ENCOUNTER → 2020-11-03 | Outpatient (CLI) | payer OTHER | LOC: HYPER 08:53 | PROVIDERS: ATTEND Emergency Medicine | DX: E11.621 Type 2 diabetes mellitus with foot ulcer (principal); L97.522 Non-pressure chronic ulcer of other part of left foot with fat layer exposed; E11.51 Type 2 diabetes mellitus with diabetic peripheral angiopathy without gangrene; E11.42 Type 2 diabetes mellitus with diabetic polyneuropathy; L84 Corns and callosities; E11.69 Type 2 diabetes mellitus with other specified complication; M86.8X7 Other osteomyelitis, ankle and foot; B35.1 Tinea unguium; I25.10 Atherosclerotic heart disease of native coronary artery without angina pectoris; I25.5 Ischemic cardiomyopathy; M79.674 Pain in right toe(s); D16.32 Benign neoplasm of short bones of left lower limb; M77.42 Metatarsalgia, left foot; G61.0 Guillain-Barre syndrome; E11.22 Type 2 diabetes mellitus with diabetic chronic kidney disease; I50.9 Heart failure, unspecified; N18.30 Chronic kidney disease, stage 3 unspecified; F17.290 Nicotine dependence, other tobacco product, uncomplicated; Z86.718 Personal history of other venous thrombosis and embolism; Z79.84 Long term (current) use of oral hypoglycemic drugs; Z79.82 Long term (current) use of aspirin; Z89.432 Acquired absence of left foot; Z79.899 Other long term (current) drug therapy ==

== ENCOUNTER → 2020-11-17 | Outpatient (CLI) | payer OTHER | LOC: HYPER 08:23 | PROVIDERS: ATTEND Emergency Medicine | DX: E11.621 Type 2 diabetes mellitus with foot ulcer (principal); L97.522 Non-pressure chronic ulcer of other part of left foot with fat layer exposed; E11.51 Type 2 diabetes mellitus with diabetic peripheral angiopathy without gangrene; E11.42 Type 2 diabetes mellitus with diabetic polyneuropathy; L84 Corns and callosities; E11.69 Type 2 diabetes mellitus with other specified complication; M86.8X7 Other osteomyelitis, ankle and foot; B35.1 Tinea unguium; I25.10 Atherosclerotic heart disease of native coronary artery without angina pectoris; I25.5 Ischemic cardiomyopathy; M79.674 Pain in right toe(s); D16.32 Benign neoplasm of short bones of left lower limb; M77.42 Metatarsalgia, left foot; G61.0 Guillain-Barre syndrome; E11.22 Type 2 diabetes mellitus with diabetic chronic kidney disease; I50.9 Heart failure, unspecified; N18.30 Chronic kidney disease, stage 3 unspecified; F17.290 Nicotine dependence, other tobacco product, uncomplicated; Z86.718 Personal history of other venous thrombosis and embolism; Z79.84 Long term (current) use of oral hypoglycemic drugs; Z79.82 Long term (current) use of aspirin; Z89.432 Acquired absence of left foot ==

== ENCOUNTER → 2020-12-01 | Outpatient (CLI) | payer OTHER | LOC: HYPER 08:04 | PROVIDERS: ATTEND Emergency Medicine | DX: E11.621 Type 2 diabetes mellitus with foot ulcer (principal); L97.522 Non-pressure chronic ulcer of other part of left foot with fat layer exposed; E11.51 Type 2 diabetes mellitus with diabetic peripheral angiopathy without gangrene; E11.42 Type 2 diabetes mellitus with diabetic polyneuropathy; L84 Corns and callosities; E11.69 Type 2 diabetes mellitus with other specified complication; M86.8X7 Other osteomyelitis, ankle and foot; E11.22 Type 2 diabetes mellitus with diabetic chronic kidney disease; N18.30 Chronic kidney disease, stage 3 unspecified; B35.1 Tinea unguium; I25.10 Atherosclerotic heart disease of native coronary artery without angina pectoris; I25.5 Ischemic cardiomyopathy; D16.32 Benign neoplasm of short bones of left lower limb; M77.42 Metatarsalgia, left foot; G61.0 Guillain-Barre syndrome; I50.9 Heart failure, unspecified; M79.674 Pain in right toe(s); F17.290 Nicotine dependence, other tobacco product, uncomplicated; Z86.718 Personal history of other venous thrombosis and embolism; Z79.84 Long term (current) use of oral hypoglycemic drugs; Z79.82 Long term (current) use of aspirin; Z89.432 Acquired absence of left foot ==

== ENCOUNTER → 2020-12-26 | Outpatient (CLI) | payer OTHER | LOC: HYPER 07:51 | PROVIDERS: ATTEND Emergency Medicine | DX: E11.621 Type 2 diabetes mellitus with foot ulcer (principal); L97.522 Non-pressure chronic ulcer of other part of left foot with fat layer exposed; E11.51 Type 2 diabetes mellitus with diabetic peripheral angiopathy without gangrene; E11.42 Type 2 diabetes mellitus with diabetic polyneuropathy; I25.10 Atherosclerotic heart disease of native coronary artery without angina pectoris; M79.674 Pain in right toe(s); M77.42 Metatarsalgia, left foot; E11.22 Type 2 diabetes mellitus with diabetic chronic kidney disease; I50.9 Heart failure, unspecified; N18.30 Chronic kidney disease, stage 3 unspecified; E11.69 Type 2 diabetes mellitus with other specified complication; M86.9 Osteomyelitis, unspecified; G61.0 Guillain-Barre syndrome; L84 Corns and callosities; I25.5 Ischemic cardiomyopathy; B35.1 Tinea unguium; D16.32 Benign neoplasm of short bones of left lower limb; F17.290 Nicotine dependence, other tobacco product, uncomplicated; Z86.718 Personal history of other venous thrombosis and embolism; Z79.82 Long term (current) use of aspirin; Z79.84 Long term (current) use of oral hypoglycemic drugs; Z79.899 Other long term (current) drug therapy; Z89.432 Acquired absence of left foot; Z89.422 Acquired absence of other left toe(s); Z95.1 Presence of aortocoronary bypass graft ==

== ENCOUNTER → 2021-01-01 | Outpatient (CLI) | payer OTHER | LOC: HYPER 07:26 | PROVIDERS: ATTEND Emergency Medicine | DX: E11.621 Type 2 diabetes mellitus with foot ulcer (principal); L97.522 Non-pressure chronic ulcer of other part of left foot with fat layer exposed; E11.51 Type 2 diabetes mellitus with diabetic peripheral angiopathy without gangrene; E11.42 Type 2 diabetes mellitus with diabetic polyneuropathy; I25.10 Atherosclerotic heart disease of native coronary artery without angina pectoris; M79.674 Pain in right toe(s); M77.42 Metatarsalgia, left foot; E11.69 Type 2 diabetes mellitus with other specified complication; M86.9 Osteomyelitis, unspecified; G61.0 Guillain-Barre syndrome; L84 Corns and callosities; I25.5 Ischemic cardiomyopathy; E11.22 Type 2 diabetes mellitus with diabetic chronic kidney disease; I13.0 Hypertensive heart and chronic kidney disease with heart failure and stage 1 through stage 4 chronic kidney disease, or unspecified chronic kidney disease; I50.9 Heart failure, unspecified; N18.30 Chronic kidney disease, stage 3 unspecified; B35.1 Tinea unguium; D16.32 Benign neoplasm of short bones of left lower limb; Z86.718 Personal history of other venous thrombosis and embolism; Z89.432 Acquired absence of left foot ==

== ENCOUNTER → 2021-01-15 | Outpatient (CLI) | payer OTHER | LOC: HYPER 10:03 | PROVIDERS: ATTEND Emergency Medicine | DX: E11.621 Type 2 diabetes mellitus with foot ulcer (principal); L97.522 Non-pressure chronic ulcer of other part of left foot with fat layer exposed; E11.51 Type 2 diabetes mellitus with diabetic peripheral angiopathy without gangrene; E11.42 Type 2 diabetes mellitus with diabetic polyneuropathy; L84 Corns and callosities; I25.10 Atherosclerotic heart disease of native coronary artery without angina pectoris; M79.674 Pain in right toe(s); M77.42 Metatarsalgia, left foot; E11.69 Type 2 diabetes mellitus with other specified complication; M86.9 Osteomyelitis, unspecified; G61.0 Guillain-Barre syndrome; I25.5 Ischemic cardiomyopathy; E11.22 Type 2 diabetes mellitus with diabetic chronic kidney disease; I50.9 Heart failure, unspecified; N18.30 Chronic kidney disease, stage 3 unspecified; B35.1 Tinea unguium; D16.32 Benign neoplasm of short bones of left lower limb; F17.290 Nicotine dependence, other tobacco product, uncomplicated; Z86.718 Personal history of other venous thrombosis and embolism; Z79.84 Long term (current) use of oral hypoglycemic drugs; Z89.432 Acquired absence of left foot; Z79.82 Long term (current) use of aspirin; Z79.899 Other long term (current) drug therapy; Z89.422 Acquired absence of other left toe(s) ==

== ENCOUNTER → 2021-01-21 | Outpatient (CLI) | payer OTHER | LOC: HYPER 08:16 | PROVIDERS: ATTEND Emergency Medicine | DX: E11.621 Type 2 diabetes mellitus with foot ulcer (principal); L97.422 Non-pressure chronic ulcer of left heel and midfoot with fat layer exposed; L84 Corns and callosities; E11.51 Type 2 diabetes mellitus with diabetic peripheral angiopathy without gangrene; E11.42 Type 2 diabetes mellitus with diabetic polyneuropathy; I25.10 Atherosclerotic heart disease of native coronary artery without angina pectoris; M79.674 Pain in right toe(s); M77.42 Metatarsalgia, left foot; E11.69 Type 2 diabetes mellitus with other specified complication; M86.9 Osteomyelitis, unspecified; G61.0 Guillain-Barre syndrome; I25.5 Ischemic cardiomyopathy; E11.22 Type 2 diabetes mellitus with diabetic chronic kidney disease; I50.9 Heart failure, unspecified; N18.30 Chronic kidney disease, stage 3 unspecified; B35.1 Tinea unguium; D16.32 Benign neoplasm of short bones of left lower limb; F17.290 Nicotine dependence, other tobacco product, uncomplicated; Z86.718 Personal history of other venous thrombosis and embolism; Z79.84 Long term (current) use of oral hypoglycemic drugs; Z89.432 Acquired absence of left foot; Z79.82 Long term (current) use of aspirin; Z89.422 Acquired absence of other left toe(s) ==

== ENCOUNTER → 2021-01-28 | Outpatient (CLI) | payer OTHER | LOC: HYPER 08:50 | PROVIDERS: ATTEND Emergency Medicine | DX: E11.621 Type 2 diabetes mellitus with foot ulcer (principal); L97.522 Non-pressure chronic ulcer of other part of left foot with fat layer exposed; E11.51 Type 2 diabetes mellitus with diabetic peripheral angiopathy without gangrene; E11.42 Type 2 diabetes mellitus with diabetic polyneuropathy; I25.10 Atherosclerotic heart disease of native coronary artery without angina pectoris; M79.674 Pain in right toe(s); M77.42 Metatarsalgia, left foot; E11.22 Type 2 diabetes mellitus with diabetic chronic kidney disease; I50.9 Heart failure, unspecified; N18.30 Chronic kidney disease, stage 3 unspecified; E11.69 Type 2 diabetes mellitus with other specified complication; M86.9 Osteomyelitis, unspecified; G61.0 Guillain-Barre syndrome; L84 Corns and callosities; I25.2 Old myocardial infarction; B35.1 Tinea unguium; D16.32 Benign neoplasm of short bones of left lower limb; F17.290 Nicotine dependence, other tobacco product, uncomplicated; Z79.82 Long term (current) use of aspirin; Z86.718 Personal history of other venous thrombosis and embolism; Z79.84 Long term (current) use of oral hypoglycemic drugs; Z79.899 Other long term (current) drug therapy; Z89.432 Acquired absence of left foot ==

== ENCOUNTER → 2021-02-05 | Outpatient (CLI) | payer OTHER | LOC: HYPER 08:58 | PROVIDERS: ATTEND Emergency Medicine | DX: E11.621 Type 2 diabetes mellitus with foot ulcer (principal); L97.522 Non-pressure chronic ulcer of other part of left foot with fat layer exposed; E11.51 Type 2 diabetes mellitus with diabetic peripheral angiopathy without gangrene; E11.42 Type 2 diabetes mellitus with diabetic polyneuropathy; I25.10 Atherosclerotic heart disease of native coronary artery without angina pectoris; M79.674 Pain in right toe(s); M77.42 Metatarsalgia, left foot; E11.22 Type 2 diabetes mellitus with diabetic chronic kidney disease; I50.9 Heart failure, unspecified; N18.30 Chronic kidney disease, stage 3 unspecified; E11.69 Type 2 diabetes mellitus with other specified complication; M86.9 Osteomyelitis, unspecified; G61.0 Guillain-Barre syndrome; L84 Corns and callosities; I25.2 Old myocardial infarction; B35.1 Tinea unguium; D16.32 Benign neoplasm of short bones of left lower limb; F17.290 Nicotine dependence, other tobacco product, uncomplicated; Z79.82 Long term (current) use of aspirin; Z86.718 Personal history of other venous thrombosis and embolism; Z79.84 Long term (current) use of oral hypoglycemic drugs; Z89.432 Acquired absence of left foot ==

== ENCOUNTER → 2021-02-19 | Outpatient (CLI) | payer OTHER | LOC: HYPER 10:07 | PROVIDERS: ATTEND Emergency Medicine | DX: E11.621 Type 2 diabetes mellitus with foot ulcer (principal); L97.422 Non-pressure chronic ulcer of left heel and midfoot with fat layer exposed; L84 Corns and callosities; E11.51 Type 2 diabetes mellitus with diabetic peripheral angiopathy without gangrene; E11.42 Type 2 diabetes mellitus with diabetic polyneuropathy; I25.10 Atherosclerotic heart disease of native coronary artery without angina pectoris; E11.22 Type 2 diabetes mellitus with diabetic chronic kidney disease; N18.30 Chronic kidney disease, stage 3 unspecified; E11.69 Type 2 diabetes mellitus with other specified complication; M86.9 Osteomyelitis, unspecified; D16.32 Benign neoplasm of short bones of left lower limb; B35.1 Tinea unguium; G61.89 Other inflammatory polyneuropathies; G61.0 Guillain-Barre syndrome; I50.9 Heart failure, unspecified; I25.2 Old myocardial infarction; I25.5 Ischemic cardiomyopathy; F17.290 Nicotine dependence, other tobacco product, uncomplicated; M79.674 Pain in right toe(s); M77.42 Metatarsalgia, left foot; Z79.82 Long term (current) use of aspirin; Z86.718 Personal history of other venous thrombosis and embolism; Z79.84 Long term (current) use of oral hypoglycemic drugs; Z89.432 Acquired absence of left foot ==

== ENCOUNTER → 2021-03-05 | Outpatient (CLI) | payer OTHER | LOC: HYPER 09:05 | PROVIDERS: ATTEND Emergency Medicine | DX: E11.621 Type 2 diabetes mellitus with foot ulcer (principal); L97.522 Non-pressure chronic ulcer of other part of left foot with fat layer exposed; E11.51 Type 2 diabetes mellitus with diabetic peripheral angiopathy without gangrene; E11.42 Type 2 diabetes mellitus with diabetic polyneuropathy; E11.69 Type 2 diabetes mellitus with other specified complication; M86.9 Osteomyelitis, unspecified; I25.10 Atherosclerotic heart disease of native coronary artery without angina pectoris; M77.42 Metatarsalgia, left foot; L84 Corns and callosities; E11.22 Type 2 diabetes mellitus with diabetic chronic kidney disease; N18.30 Chronic kidney disease, stage 3 unspecified; G61.0 Guillain-Barre syndrome; F17.290 Nicotine dependence, other tobacco product, uncomplicated; Z86.718 Personal history of other venous thrombosis and embolism; Z79.82 Long term (current) use of aspirin; Z79.84 Long term (current) use of oral hypoglycemic drugs; Z79.899 Other long term (current) drug therapy; Z89.422 Acquired absence of other left toe(s); Z89.432 Acquired absence of left foot ==

== ENCOUNTER → 2021-04-02 | Outpatient (CLI) | payer OTHER | LOC: HYPER 10:27 | PROVIDERS: ATTEND Emergency Medicine | DX: E11.621 Type 2 diabetes mellitus with foot ulcer (principal); L97.422 Non-pressure chronic ulcer of left heel and midfoot with fat layer exposed; L84 Corns and callosities; E11.51 Type 2 diabetes mellitus with diabetic peripheral angiopathy without gangrene; E11.43 Type 2 diabetes mellitus with diabetic autonomic (poly)neuropathy; M77.42 Metatarsalgia, left foot; E11.22 Type 2 diabetes mellitus with diabetic chronic kidney disease; I50.9 Heart failure, unspecified; N18.30 Chronic kidney disease, stage 3 unspecified; E11.69 Type 2 diabetes mellitus with other specified complication; M86.9 Osteomyelitis, unspecified; B35.1 Tinea unguium; D16.32 Benign neoplasm of short bones of left lower limb; I25.5 Ischemic cardiomyopathy; I25.10 Atherosclerotic heart disease of native coronary artery without angina pectoris; G61.0 Guillain-Barre syndrome; M79.674 Pain in right toe(s); F17.290 Nicotine dependence, other tobacco product, uncomplicated; Z89.432 Acquired absence of left foot; Z86.718 Personal history of other venous thrombosis and embolism; Z79.82 Long term (current) use of aspirin; Z79.84 Long term (current) use of oral hypoglycemic drugs ==

== ENCOUNTER → 2021-04-21 | Outpatient (CLI) | payer OTHER | LOC: HYPER 14:36 | PROVIDERS: ATTEND Emergency Medicine | DX: E11.621 Type 2 diabetes mellitus with foot ulcer (principal); L97.522 Non-pressure chronic ulcer of other part of left foot with fat layer exposed; L84 Corns and callosities; E11.51 Type 2 diabetes mellitus with diabetic peripheral angiopathy without gangrene; E11.40 Type 2 diabetes mellitus with diabetic neuropathy, unspecified; M77.42 Metatarsalgia, left foot; E11.22 Type 2 diabetes mellitus with diabetic chronic kidney disease; I50.9 Heart failure, unspecified; N18.30 Chronic kidney disease, stage 3 unspecified; E11.69 Type 2 diabetes mellitus with other specified complication; M86.9 Osteomyelitis, unspecified; B35.1 Tinea unguium; D16.32 Benign neoplasm of short bones of left lower limb; I25.5 Ischemic cardiomyopathy; I25.10 Atherosclerotic heart disease of native coronary artery without angina pectoris; G61.0 Guillain-Barre syndrome; M79.674 Pain in right toe(s); F17.290 Nicotine dependence, other tobacco product, uncomplicated; Z89.432 Acquired absence of left foot; Z86.718 Personal history of other venous thrombosis and embolism; Z79.82 Long term (current) use of aspirin; Z79.84 Long term (current) use of oral hypoglycemic drugs ==

== ENCOUNTER → 2021-04-30 | Outpatient (CLI) | payer OTHER | LOC: HYPER 09:38 | PROVIDERS: ATTEND Emergency Medicine | DX: E11.621 Type 2 diabetes mellitus with foot ulcer (principal); L97.522 Non-pressure chronic ulcer of other part of left foot with fat layer exposed; L84 Corns and callosities; E11.51 Type 2 diabetes mellitus with diabetic peripheral angiopathy without gangrene; E11.40 Type 2 diabetes mellitus with diabetic neuropathy, unspecified; G61.89 Other inflammatory polyneuropathies; M77.42 Metatarsalgia, left foot; E11.22 Type 2 diabetes mellitus with diabetic chronic kidney disease; I50.9 Heart failure, unspecified; N18.30 Chronic kidney disease, stage 3 unspecified; E11.69 Type 2 diabetes mellitus with other specified complication; M86.9 Osteomyelitis, unspecified; B35.1 Tinea unguium; D16.32 Benign neoplasm of short bones of left lower limb; I25.5 Ischemic cardiomyopathy; I25.10 Atherosclerotic heart disease of native coronary artery without angina pectoris; G61.0 Guillain-Barre syndrome; M79.674 Pain in right toe(s); F17.290 Nicotine dependence, other tobacco product, uncomplicated; Z89.432 Acquired absence of left foot; Z86.718 Personal history of other venous thrombosis and embolism; Z79.82 Long term (current) use of aspirin; Z79.84 Long term (current) use of oral hypoglycemic drugs ==